=== PATIENT | male | born 1930 | race Caucasian/White ===

== ENCOUNTER 2016-06-04 15:51 | Observation (INO) | payer MEDICARE, BC ==
[2016-06-04] MEDS: Sodium Chloride 0.9% 10 ML Syringe FLUSH PRN (16:45)
--- NOTE | 2016-06-04 16:58 | EDM.PDOC ---
ED HPI Trauma - General Source: Reports: Patient History Limitations: Reports: No limitations - History of Present Illness Symptom Onset Date: 06/03/16 Symptom Onset Time: 06:00 Occurred When: yesterday Occurred Where: home Method of Injury: fall Severity: moderate Pain/Injury Location: Reports: head, abdomen, back Consciousness: Reports: no loss of consciousness, dazed Associated Symptoms: Reports: abdominal pain, headache, nausea/vomiting (nausea no vomiting), shortness of breath <Judi Alves - Last Filed: 06/04/16 19:21> <Kory Britton - Last Filed: 06/04/16 19:59> - General Chief Complaint: Trauma Stated Complaint: FELL HURT HEAD AND BACK Time Seen by Provider: 06/04/16 16:58 - History of Present Illness INITIAL COMMENTS - FREE TEXT/NARRATIVE: Patient states he was walking out to get the paper yesterday morning about 0600 when he slipped and fell flat on his back. He states he hit his head but did not lose concsiousness but felt as though he was dazed. He has been having quite a bit of pain to the head, back and RUQ. He drove himself to the ER today. He admits to nausea but no vomiting, and sob upon inspiration. He denies any dizziness or vision problems. (Judi Alves) Allergies/ADRs: Allergies fenofibrate nanocrystallized [From Tricor] Allergy (Verified 04/30/15 06:06) Cannot Remember fenofibrate,micronized [From Tricor] Allergy (Verified 04/30/15 06:06) Cannot Remember nortriptyline HCl [From Pamelor] Allergy (Verified 04/30/15 06:06) Cannot Remember sulfamethoxazole [From Bactrim] Allergy (Verified 04/30/15 06:06) Cannot Remember trimethoprim [From Bactrim] Allergy (Verified 04/30/15 06:06) Cannot Remember Home Medications: Ambulatory Orders Aspirin [Adult Low Dose Aspirin EC] 81 mg PO DAILY 04/25/15 [Confirmed 06/04/16] Calcium Carbonate/Vitamin D3 [Calcium 500 + Vit D 200 Tablet] 1 tab PO DAILY [Confirmed 06/04/16] Doxazosin [Cardura] 2 mg PO BEDTIME 04/25/15 [Confirmed 06/04/16] Lisinopril [Zestril] 20 mg PO DAILY 04/25/15 [Confirmed 06/04/16] Metoprolol Succinate [Toprol XL] 37.5 mg PO DAILY 04/25/15 [Confirmed 06/04/16] Multivit-Min/FA/Lycopene/Lut [Centrum Silver Tablet] 1 tab PO DAILY 04/25/15 [ Confirmed 06/04/16] Omeprazole [Prilosec] 20 mg PO BID 04/25/15 [Confirmed 06/04/16] metFORMIN [Glucophage] 1,000 mg PO BIDMEALS 04/25/15 [Confirmed 06/04/16] Aspirin/Caffeine [Crista Back & Body Caplet] 1 - 2 tab PO DAILY PRN 04/29/15 [ Confirmed 06/04/16] Magnesium 375 mg PO TID 06/04/16 [Confirmed 06/04/16] Past Medical History HEENT History: Reports: Cataract, Impaired vision Other HEENT History: WEARS CORRECTIVE LENSES Cardiovascular History: Reports: Hypertension Respiratory History: Reports: Other (see below) Other Respiratory History: PHELGM THAT OFTEN REQUIRES HE COUGH/SPIT IT UP Gastrointestinal History: Reports: GERD, Hemorrhoids Other Gastrointestinal History: INTERMITTENT SMALL VOLUME RECTAL BLEEDING AFTER STOOL PASSES; ELEVATED LIVER ENZYMES AT ONE TIME Genitourinary History: Reports: BPH, Renal calculus, Other (see below) Other Genitourinary History: HEMATURIA Musculoskeletal History: Reports: Back pain, chronic, Fracture, Gout, Neck pain , chronic Neurological History: Reports: Other (see below) Other Neuro History: RESTLESS LEG SYNDROME Psychiatric History: Reports: Anxiety Endocrine/Metabolic History: Reports: Diabetes, type II Hematologic History: Reports: None Immunologic History: Reports: None Oncologic (Cancer) History: Reports: None Dermatologic History: Reports: None - Past Surgical History Head Surgeries/Procedures: Reports: None HEENT Surgical History: Reports: Adenoidectomy, Cataract surgery, Tonsillectomy Cardiovascular Surgical History: Reports: None Respiratory Surgical History: Reports: None GI Surgical History: Reports: Cholecystectomy, Hernia, inguinal, Hernia repair/ other Male Surgical History: Reports: TURP-Transurethral resection of prostate, Varicocele resection Endocrine Surgical History: Reports: None Neurological Surgical History: Reports: None Musculoskeletal Surgical History: Reports: Arthroscopic knee, Shoulder surgery Oncologic Surgical History: Reports: None Dermatological Surgical History: Reports: None <AlvesToyJudi - Last Filed: 06/04/16 19:21> Social & Family History - Tobacco Use Smoking Status *Q: Former Smoker Years of Tobacco use: 25 Packs/Tins Daily: 1 Used Tobacco, but Quit: Yes Month Tobacco Last Used: 03/31/1982 Second Hand Smoke Exposure: No - Recreational Drug Use Recreational Drug Use: No Drug Use in Last 12 Months: No <Judi Alves - Last Filed: 06/04/16 19:21> Review of Systems - Review of Systems Review Of Systems: ROS reveals no pertinent complaints other than HPI. <Judi Alves - Last Filed: 06/04/16 19:21> ED EXAM, TRAUMA (MAJOR/MULTI) - Physical Exam Exam: See Below Exam Limited By: No limitations General Appearance: alert, WD/WN, no apparent distress Head: normocephalic, scalp abrasions, scalp tenderness Eyes: bilateral eye: EOMI, normal inspection, PERRL Ears: normal external exam, normal canal, hearing grossly normal, normal TMs Nose: normal inspection, normal mucousa, no blood Throat/Mouth: Normal inspection, Normal lips, Normal teeth, Normal gums, Normal oropharynx, Normal voice, No airway compromise Neck: non-tender, full range of motion, normal alignment, normal inspection Cardiovascular: normal peripheral pulses, regular rate, rhythm, no edema, no gallop, no JVD, no murmur, no rub Respiratory/Chest: no respiratory distress, no accessory muscle use, chest non- tender, decreased breath sounds GI/Abdominal: normal bowel sounds, rigid, distended, tenderness, guarding (Male) Exam: Deferred Rectal (Males) Exam: Deferred Back: full range of motion, normal inspection, CVA tenderness (R) Extremities: no evidence of injury, normal range of motion Neurologic: no motor/sensory deficits, alert, normal mood/affect, oriented x 3 Skin: Normal color, Warm/dry - Buchanan Coma Score Best Eye Response (Buchanan): (4) open spontaneously Best Verbal Response (Buchanan): (5) oriented Best Motor Response (Buchanan): (6) obeys commands <Judi Alves - Last Filed: 06/04/16 19:21> - Buchanan Coma Score Buchanan Total: 15 <Kory Britton - Last Filed: 06/04/16 19:59> Course <Judi Alves - Last Filed: 06/04/16 19:21> - Radiology Interpretation CT Results Date: 06/04/16 <Kory Britton - Last Filed: 06/04/16 19:59> - Vital Signs Last Recorded V/S: Last Vital Signs Temp 37.6 C 06/04/16 16:35 Pulse 74 06/04/16 16:35 Resp 18 06/04/16 16:35 BP 157/82 H 06/04/16 16:35 Pulse Ox 96 06/04/16 16:35 (Kory Britton) - Orders/Labs/Meds Orders: Active Orders 24 hr Category Date Time Status Peripheral IV Care [RC] . DIRECTED Care 06/04/16 17:12 Active Cervical Spine wo Cont [CT] Stat Exams 06/04/16 16:55 Taken Chest Abdomen Pelvis w Cont [CT] Stat Exams 06/04/16 16:55 Taken Head wo Cont [CT] Stat Exams 06/04/16 16:55 Taken Sodium Chloride 0.9% [Saline Flush] Med 06/04/16 17:11 Active 10 ml FLUSH ASDIRECTED PRN Peripheral IV Insertion Adult [OM.PC] Stat Oth 06/04/16 17:11 Ordered Medication Orders Sodium Chloride (Saline Flush) 10 ml FLUSH ASDIRECTED PRN PRN Reason: Keep Vein Open Last Admin: 06/04/16 16:45 Dose: 10 ml (Judi Alves) (Kory Britton) Labs: Laboratory Tests 06/04/16 06/04/16 06/04/16 Range/Units 17:20 17:20 18:25 WBC 8.8 (5.0-10.0) 10^3/uL RBC 3.74 L (4.6-6.2) 10^6/uL Hgb 10.6 L (14.0-18.0) g/dL Hct 32.6 L (40.0-54.0) % MCV 87.2 (80-100) fL MCH 28.3 (27.0-34.0) pg MCHC 32.5 L (33.0-35.0) g/dL Plt Count 238 (150-450) 10^3/uL Neut % (Auto) 71.4 (42.2-75.2) % Lymph % (Auto) 19.6 L (20.5-50.1) % [place] % (Auto) 7.9 (2-8) % Eos % (Auto) 0.9 L (1.0-3.0) % Baso % (Auto) 0.2 (0.0-1.0) % Sodium 136 (135-145) mmol/L Potassium 4.0 (3.6-5.0) mmol/L Chloride 100 L (101-111) mmol/L Carbon Dioxide 24.0 (21.0-31.0) mmol/L Anion Gap 16.0 BUN 23 H (7-18) mg/dL Creatinine 1.1 (0.6-1.3) mg/dL Est Cr Clr Drug Dosing 48.36 mL/min Estimated GFR (MDRD) > 60 BUN/Creatinine Ratio 20.90 Glucose 135 H (74-105) mg/dL Calcium 9.2 (8.4-10.2) mg/dl Total Bilirubin 0.4 (0.2-1.0) mg/dL AST 25 (10-42) IU/L ALT 25 (10-60) IU/L Alkaline Phosphatase 55 (42-121) IU/L Total Protein 6.8 (6.7-8.2) g/dl Albumin 3.9 (3.2-5.5) g/dl Globulin 2.9 Albumin/Globulin Ratio 1.34 Urine Color Yellow (YELLOW) Urine Appearance Clear (CLEAR) Urine pH 5.0 (5.0-9.0) Ur Specific [place] 1.020 (1.005-1.030) Urine Protein Negative (NEGATIVE) Urine Glucose (UA) Negative (NEGATIVE) Urine Ketones Negative (NEGATIVE) Urine Occult Blood Negative (NEGATIVE) Urine Nitrite Negative (NEGATIVE) Urine Bilirubin Negative (NEGATIVE) Urine Urobilinogen 0.2 (0.2-1.0) mg/dL Ur Leukocyte Esterase Negative (NEGATIVE) Urine RBC 0-5 /HPF Urine WBC 0-5 (0-5/HPF) /HPF Ur Epithelial Cells Few /HPF Urine Bacteria Few (0-FEW/HPF) /HPF Urine Mucus Moderate H /LPF (Kory Britton) Meds: Medications Generic Name Dose Route Start Last Admin Trade Name Freq PRN Reason Stop Dose Admin Sodium Chloride 10 ml 06/04/16 17:11 06/04/16 16:45 Saline Flush FLUSH 10 ml ASDIRECTED PRN Administration Keep Vein Open Discontinued Medications Generic Name Dose Route Start Last Admin Trade Name Rose PRN Reason Stop Dose Admin Iopamidol 100 ml 06/04/16 17:11 06/04/16 17:12 Isovue-300 (61%) IVPUSH 06/04/16 17:12 100 ml ONETIME ONE Administration (Kory Britton) - Radiology Interpretation Free Text/Narrative:: CT Head without contrast: No acute intracranial pathology. See rad report. CT Cervical Spine without IV contrast: No acute fracture or subluxation. See Rad report. CT Chest/Abdomen/Pelvis: Acute moderately displaced posterior right 8th, 9th, and 10th rib fractures, with adjacent minimal right posterior subpleural hemorrhage, and additional acute nondisplaced posterior right 11th and 12 rib fractures. See rad report (Judi Alves) - Re-Assessments/Exams Free Text/Narrative Re-Assessment/Exam: 06/04/16 18:27 FOR THIS ENCOUNTER THE PATIENT WAS SEEN IN CONJUNCTION WITH [facility] STUDENT JUDI ALVES. ALL PATIENT CARE AND/OR PROCEDURE(S), DIAGNOSTIC ORDERS, MEDICATION(S) AND TREATMENT ORDERS, DISPOSITION ORDERS/PLANNING, AND DISCHARGE/FOLLOW UP INSTRUCTIONS WERE UNDER MY DIRECT SUPERVISION. gbd (Kory Britton) Departure - Departure Time of Disposition: 19:22 (Dr. Garduno) Condition: fair <Judi Alves - Last Filed: 06/04/16 19:21> <Kory Britton - Last Filed: 06/04/16 19:59> - Departure Disposition: Admitted As Inpatient 68 Clinical Impression: Atelectasis, left, Pulmonary hemorrhage Fall Qualifiers: Encounter type: initial encounter Qualified Code(s): W19.XXXA - Unspecified fall, initial encounter Rib fracture Qualifiers: Encounter type: initial encounter Rib fracture type: multiple ribs Fracture type: closed Laterality: right Qualified Code(s): S22.41XA - Multiple fractures of ribs, right side, initial encounter for closed fracture
[2016-06-04] MEDS ORDERED: Iopamidol 612 MG/ML 100 ML Bottle IVPUSH ONE (17:11)
[2016-06-04 17:46] LABS: CHLORIDE,CL 100 mmol/L (101-111); SODIUM,NA 136 mmol/L (135-145)
[2016-06-04] MEDS ORDERED: Morphine 2 MG/ML Syringe IVPUSH ONE (21:31)
[2016-06-04] MEDS ORDERED: Docusate Sodium 100 MG Cap PO PRN (22:17)
[2016-06-04] MEDS ORDERED: Acetaminophen/oxyCODONE 325-5 MG Tab PO PRN (22:17)
[2016-06-04] MEDS ORDERED: Ondansetron 4 MG Tab.DIS PO PRN (22:17)
[2016-06-04] MEDS ORDERED: Magnesium Hydroxide 400 MG/5 ML Susp 30 ML Cup PO PRN (22:17)
[2016-06-04] MEDS ORDERED: Acetaminophen 325 MG Tab PO PRN (22:17)
[2016-06-04] MEDS ORDERED: Zolpidem 5 MG Tab PO PRN (22:17)
[2016-06-04] MEDS ORDERED: guaiFENesin 100 MG/5 ML Soln 5 ML UD Cup PO PRN (22:24)
[2016-06-04] MEDS ORDERED: Benzonatate 100 MG Cap PO PRN (22:24)
[2016-06-04] MEDS ORDERED: 50% Dextrose in Water 50 ML Syringe IVPUSH PRN (22:26)
[2016-06-04] MEDS ORDERED: Lidocaine 5% 700 MG Patch TOP SCH (22:30)
--- NOTE | 2016-06-04 23:12 | HP ---
CHIEF COMPLAINT: Fall with pain on the right posterior side. HISTORY OF PRESENTING ILLNESS: Mr. Alexys Velez is an 86-year-old male with medical history significant for hypertension, type 2 diabetes mellitus, hyperlipidemia, gastroesophageal reflux disease, and peptic ulcer disease, history of diverticulosis, hemorrhoids, and hematuria in the past, degenerative disc disease of the lumbosacral spine, rib fractures from fall from ladder in the past, presented to the ER today with complaints of having pain to the right posterior side. This occurred after a fall and the patient had a CT scan of the chest, abdomen, and pelvis, which showed evidence of multiple rib fractures on the right side along with adjacent right posterior subpleural hemorrhage, needing admission to the hospital. At this time, the patient complains of increasing pain to the right posterior side. He grades the pain as 7-8/10 in intensity, which gets aggravated on movement, ambulation and cough, nonradiating type of pain, associated with cough and nausea, but no vomiting. Denied any chest pains. No shortness of breath. No abdominal pain. No diarrhea for the last few days. Denies any fevers or chills for the last few days. The patient was apparently going to collect his mail from the mailbox, 2 days before, and the patient was initially walking on the grass, then went into his driveway to get the mail. On the driveway, he did not notice there was some ice and he slipped and fell on the driveway, hitting the concrete floor. He did not lose his consciousness. He did not hit his head. He was able to get up on his own and ambulate around, but continued to have increasing pain. He called the primary care clinic today, but as it was too late, he was sent to the emergency room. The patient denied any history of chest pains on exertion. No history of dyspnea on exertion. No history of orthopnea or paroxysmal nocturnal dyspnea. The patient denied any history of hematemesis, hematochezia, or melanotic stools. Normal bowel and bladder habits otherwise. REVIEW OF SYSTEMS: A complete review of system including skin, ear, nose, and throat, cardiovascular system, respiratory system, gastrointestinal system, genitourinary system, allergy, immunology, hematology, oncology, neurology, constitutional were all evaluated and were negative except for the above-said notes. PAST MEDICAL HISTORY: Significant for hypertension, type 2 diabetes mellitus, hyperlipidemia, gastroesophageal reflux disease, peptic ulcer disease, history of rib fractures in the past, restless legs syndrome, anxiety, history of diverticulosis, hemorrhoids, hematuria in the past. PAST SURGICAL HISTORY: Significant for: 1. Open reduction and internal fixation on the left foot, knee arthroscopy of the right knee, epidural steroid injections. 2. Hernia repair in inguinal and bilateral. 3. Excision of the hydrocele. 4. Hemorrhoid evacuation. 5. Status post cholecystectomy. 6. Vasectomy. 7. Transurethral resection of the prostate. 8. Removal of the testicle with partial removal of the other. FAMILY HISTORY: Significant for heart failure and hypertension in his father. Stroke and diabetes in his mother, and diabetes in one of his son. SOCIAL HISTORY: The patient had history of smoking in the past, but had quit smoking many years back. No history of alcohol intake. HOME MEDICATIONS: Include: 1. Magnesium 375 mg three times a day. 2. Calcium carbonate with vitamin D daily. 3. Aspirin 1-2 tablets daily as needed. 4. Aspirin 81 mg daily. 5. Metoprolol-XL 37.5 mg daily. 6. Lisinopril 20 mg daily. 7. Cardura 2 mg at bedtime. 8. Metformin 1000 mg twice a day. 9. Omeprazole 20 mg twice a day. 10.Multivitamin 1 tablet daily. LABORATORY DATA: WBC 8.8, hemoglobin 10.6, hematocrit 32.6, platelet count 238. Sodium 136, potassium 4, chloride 100, bicarb 24, BUN 23, creatinine 1.1, glucose 135, AST 25, ALT 25, alkaline phosphatase 55. Urinalysis negative for nitrites, negative for leukocytes. PHYSICAL EXAMINATION: Vital Signs: Temperature of 99.6, pulse of 74, blood pressure 157/82, respiratory rate of 18, saturating at 96%. General Appearance: The patient is well oriented to time, place, and person. Follows commands spontaneously. Cardiovascular: S1, S2 heard with normal intensity. No gallops. Respiratory: Clear to auscultation bilaterally except for mild crepitations at the bases. Abdomen: Soft. Bowel sounds positive. Nontender. No rigidity. Tenderness palpated on the right side. Extremities: No edema in bilateral lower extremities. Neurology: No gross focal neurological deficit appreciated. ASSESSMENT: 1. Multiple rib fractures on the right side. 2. Mild right posterior subpleural hemorrhage. 3. Hypertension. 4. Type 2 diabetes mellitus. 5. Hyperlipidemia. 6. Gastroesophageal reflux disease. 7. Peptic ulcer disease. PLAN: 1. Multiple rib fractures. The patient is noted to have right 8th, 9th, 10th displaced posterior rib fractures and also nondisplaced posterior 11th and 12th rib fractures associated with posterior subpleural hemorrhage. The patient will be referred to observation status. We will have him on pain medications. We will have him on cough medications. We will have an incentive spirometer and flutter valve to prevent him from getting any pneumonia process down the road. We will have Physical Therapy and Occupational Therapy evaluate and treat the patient in a.m. We will closely follow the patient. Avoid any heparin products secondary to the possible hemorrhage, secondary to the rib fractures. We will have him on Lidoderm transdermal patch to improve the pain. If pain persists, then the patient might benefit from intercostal nerve blocks by intervention pain management as an outpatient. 2. Hypertension. The patient's blood pressure seems to be elevated. This could be resulting from pain. Continue with current antihypertensive medications. We will use clonidine 0.1 mg as needed for systolic blood pressure greater than 160. 3. Type 2 diabetes mellitus. The patient usually takes metformin at home. One can possibly continue the metformin while here and check his fingersticks with each meals. 4. Deep vein thrombosis prophylaxis. Avoid any heparin product secondary to the subpleural hemorrhage. Use sequential compression devices for deep vein thrombosis prophylaxis. 5. Gastroesophageal reflux disease. We will continue with proton pump inhibitor while in the hospital. 6. Code status. The patient wants to be full code. Discussed with the patient regarding the plan of care. Discussed with Dr. Britton regarding the plan of care. Reviewed the labs and medications. Reviewed the old charts. [facility] /[id number]
[2016-06-05] MEDS: Morphine 2 MG/ML Syringe IVPUSH PRN ×3 (02:33→10:45)
[2016-06-05] MEDS: Sodium Chloride 0.9% 10 ML Syringe FLUSH PRN ×3 (02:33→10:44)
[2016-06-05] MEDS ORDERED: Omeprazole 20 MG Cap.CR PO SCH (06:00)
[2016-06-05] MEDS ORDERED: Insulin Aspart 100 Units/ML 3 ML Pen SUBCUT SCH (07:30)
[2016-06-05] MEDS ORDERED: metFORMIN 500 MG Tab PO SCH (08:00)
[2016-06-05] MEDS ORDERED: Lisinopril 20 MG Tab PO SCH (09:00)
[2016-06-05] MEDS ORDERED: MAGNESIUM PO SCH (09:00)
[2016-06-05] MEDS ORDERED: Multivitamins, Therapeutic with Minerals Tab PO SCH (09:00)
[2016-06-05] MEDS ORDERED: Metoprolol Succinate 25 MG Tab.ER PO SCH (09:00)
[2016-06-05] MEDS ORDERED: Calcium Carbonate/Vitamin D3 1250 MG-200 Unit Tab PO SCH (09:00)
--- NOTE | 2016-06-05 14:02 | CR ---
Clinical history: 86-year-old male chest pain. Interpretation: Large hiatus hernia incarcerated in the lower middle mediastinum with some associate d basilar atelectasis on the left. Calcifications ectatic aorta and arthritic changes kyphotic dorsal spine. Several rib fractures (pos teriorly eighth and ninth on the right appear new since June 2014 but posterior laterally fifth, si xth, seventh rib fractures, on the left, are old). Normal cardiac silhouette without alveolar edema or dependent effusion. No lung mass, hilar lymphadenopathy or focal lobar pneumonia. No pneumothorax.
[2016-06-05 14:29] VITALS: BP 139/87
--- NOTE | 2016-06-05 15:37 | DISCH ---
ADMITTING DIAGNOSIS: Right-sided chest pain secondary to multiple right-sided rib fractures. DISCHARGE DIAGNOSIS: Chest pain on the right side secondary to multiple right- sided rib fractures involving the 8th, 9th, 10th, and 11th rib fractures on the right side leading to subpleural hemorrhage, mild. HISTORY OF PRESENTING ILLNESS: Mr. Alexys Velez is an 86-year-old male with medical history significant for hypertension, type 2 diabetes mellitus, hyperlipidemia, gastroesophageal reflux disease, and peptic ulcer disease, was admitted to the hospital with complaints of increasing pain to the right side after having a fall at his home two days prior to getting admitted to the hospital. On admission, the patient had a CT scan of the chest, abdomen, and pelvis, which showed evidence of multiple rib fractures on the right side along with adjacent right posterior subpleural hemorrhage needing admission to the hospital and observation status. The patient was kept on observation status and was treated well with Lidoderm transdermal patch along with Percocet for pain control. The patient was evaluated by Physical Therapy and Occupational Therapy. The patient was able to ambulate well with the help of walker. The patient says that the pain has much improved, but continues to have some mild pain on exertion. We also prescribed him cough suppressants including Robitussin along with Tessalon Perles. The patient is encouraged to use incentive spirometer to avoid any atelectasis and complications like pneumonia. We repeat the chest x-ray on the day of discharge, which looked benign without any evidence of atelectasis, or effusions, or hemorrhage, or pneumothorax. As the patient is hemodynamically stable, the patient is requesting to be discharged home. The patient is discharged home in stable condition. He is advised to follow with his primary care physician in the next one week of time, and patient was explained about possible intercostal nerve block if the pain persist or if the pain is getting worse. He is advised to come back to the emergency room if he experience any shortness of breath or dizziness which he understands and verbalized the same. He is discharged home in stable condition. DISCHARGE MEDICATIONS: Include: 1. Tylenol 650 mg every 4 hours as needed for pain. 2. Percocet 5/325 mg every 4 hours as needed for severe pain. 3. Aspirin 81 mg daily to be resumed on 06/08/2016. 4. Tessalon Perles 100 mg 3 times a day as needed for cough. 5. Calcium carbonate with vitamin D one tablet daily. 6. Docusate sodium 100 mg twice daily as needed for constipation. 7. Doxazosin 2 mg at bedtime. 8. Lidoderm transdermal patch 700 mg topical daily. 9. Lisinopril 20 mg daily. 10.Magnesium 375 mg 3 times a day. 11.Toprol-XL 37.5 mg daily. 12.Multivitamin 1 tablet daily. 13.Omeprazole 20 mg twice a day. 14.Robitussin 100 mg every 6 hours as needed for cough. 15.Metformin 1000 mg twice a day with each meals to be started on 06/08 secondary to recent contrast studies. PHYSICAL EXAMINATION: Vital Signs: On the day of discharge; temperature of 97.9, pulse of 73, blood pressure 126/64, respiratory rate of 20, saturating at 93%. General Appearance: The patient is well oriented to time, place, and person. Follows commands spontaneously. Cardiovascular System: S1 and S2 heard with normal intensity. No gallops. Respiratory: Clear to auscultation bilaterally. No wheeze. No crepitations. Abdomen: Soft. Bowel sounds positive. Nontender. No rigidity. Extremities: No edema in bilateral lower extremities. Neurology: No gross focal neurological deficits. CONDITION ON ADMISSION: Poor. CONDITION ON DISCHARGE: Stable. ACTIVITY: As tolerated. Avoid any lifting heavy weights and avoid any strenuous activities. FOLLOWUP: Follow up with primary care physician in the next one week of time. DIET: Cardiac healthy diet. [facility] /[id number]
[2016-06-05] MEDS ORDERED: Doxazosin 2 MG Tab PO SCH (21:00)
== END 2016-06-05 15:15 | disposition home or self-care (01) ==
LOC: DL.ED 15:51 → UNDOADMOB 21:00 → DL.MS 21:00
PROVIDERS: ADMIT Internal Medicine; ATTEND Internal Medicine
DX: S22.41XA Multiple fractures of ribs, right side, initial encounter for closed fracture (principal); R07.9 Chest pain, unspecified; R04.89 Hemorrhage from other sites in respiratory passages; I10 Essential (primary) hypertension; E11.9 Type 2 diabetes mellitus without complications; E78.5 Hyperlipidemia, unspecified; K27.9 Peptic ulcer, site unspecified, unspecified as acute or chronic, without hemorrhage or perforation; K21.9 Gastro-esophageal reflux disease without esophagitis; F41.9 Anxiety disorder, unspecified; Z79.82 Long term (current) use of aspirin; Z79.899 Other long term (current) drug therapy; Z90.49 Acquired absence of other specified parts of digestive tract; Z98.52 Vasectomy status; Z98.890 Other specified postprocedural states; Z87.891 Personal history of nicotine dependence; W11.XXXA Fall on and from ladder, initial encounter; Z88.2 Allergy status to sulfonamides; Z88.8 Allergy status to other drugs, medicaments and biological substances; R51 Headache
CPT/HCPCS: 36415; 70450; 71020; 71260; 72125; 74177; 80053; 81001; 82550; 82962; 85025; 85027; 96374; 96376; 99217; 99284; 99285; A9270; G0378; J2270; J7050; Q9967

== ENCOUNTER 2020-03-25 06:01 | Day surgery (SDC) | payer MEDICARE, BC ==
[2020-03-25] MEDS ORDERED: Midazolam 1 MG/ML 2 ML SDV IV ONE (06:02)
[2020-03-25] MEDS ORDERED: fentaNYL 100 MCG/2 ML SDV IV ONE (06:02)
[2020-03-25] MEDS ORDERED: Midazolam 1 MG/ML 2 ML SDV ONE (06:18)
[2020-03-25] MEDS ORDERED: fentaNYL 100 MCG/2 ML SDV ONE (06:19)
[2020-03-25] MEDS: Dextrose 5%-0.45% NaCl 1,000 ML IV SCH (06:50)
[2020-03-25] MEDS: fentaNYL 100 MCG/2 ML SDV IV ONE (07:10)
[2020-03-25] MEDS: Midazolam 1 MG/ML 2 ML SDV IV ONE (07:13)
[2020-03-25] MEDS ORDERED: Sodium Chloride 0.9% 10 ML Syringe FLUSH PRN (07:34)
--- NOTE | 2020-03-25 09:05 | OR ---
DATE: 03/25/2020 PROCEDURES: Esophagogastroduodenoscopy and multiple pinch biopsies. INSTRUMENT USED: GIF-HQ190 Olympus video panendoscope. PREMEDICATIONS: No oral or topical anesthesia used. Fentanyl 50 mcg intravenous, Versed 1 mg intravenous. Nasal O2 cannula. The procedure was done under pulse oximetry, BP recording, and cardiac technologist. INDICATION: The patient with high dysphagia as well as dyspepsia unexplained and not responsive to medical measures, on high-dose PPI. Recent barium esophagogram suggestive of distal esophageal stricture. Esophagogastroduodenoscopy is performed for detection of any active erosive lesions, Syed esophagus and/or malignancy also under consideration, H pylori status to be determined, esophageal dilatations if indicated, endoscopic hemostasis therapy if needed. DESCRIPTION OF PROCEDURE: The scope was passed with ease. Adequate visualization of the esophagus was made from proximal to distal areas. No upper esophageal lesions identified. No distal esophageal stricture. No uphill or downhill esophageal varices. No Romy-Farris tear. No evidence of erosive esophagitis by [place] criteria. No esophageal polyp or tumor mass identified. Sliding hiatal hernia was noted. No proximal gastric varices noted. Gastric fundus examination by retroflexion showed no polypoid lesions. No gastric ulcer, malignant mass, or vascular ectasia identified. Prominent venous architecture was noted in the gastric mucosa consistent with diffuse gastric atrophy. Duodenal bulb showed no ulcer. Visualized second part of the duodenum was unremarkable. Multiple pinch biopsies were taken from the gastric antrum and proximal body and sent for PyloriTek test for H pylori and if negative in an hour, tissues to be sent for histopathology. No bleeding was noted from any of the visualized areas at the completion of examination. IMPRESSION: 1. Sliding hiatal hernia. 2. Diffuse gastric atrophy. The patient tolerated the procedure well. [facility] /[id number]
[2020-03-25 11:56] VITALS: BP 124/54; PULSE 61
== END 2020-03-25 09:31 | disposition home or self-care (01) ==
LOC: DL.ENDO 06:01
PROVIDERS: ATTEND Internal Medicine Gastroenterology
DX: K29.40 Chronic atrophic gastritis without bleeding (principal); K44.9 Diaphragmatic hernia without obstruction or gangrene; E66.09 Other obesity due to excess calories; E78.5 Hyperlipidemia, unspecified; F41.1 Generalized anxiety disorder; E11.9 Type 2 diabetes mellitus without complications; D64.9 Anemia, unspecified; G89.29 Other chronic pain; Z98.890 Other specified postprocedural states; Z79.899 Other long term (current) drug therapy; Z79.82 Long term (current) use of aspirin; Z88.8 Allergy status to other drugs, medicaments and biological substances; Z87.891 Personal history of nicotine dependence; Z68.29 Body mass index [BMI] 29.0-29.9, adult
CPT/HCPCS: 43239; 87077; 88305; J2250; J3010; J7042